=== PATIENT | female | born 1940 | race Two or more races ===

== ENCOUNTER 2022-02-02 14:59 | Emergency (ER) | payer BC, OTHER ==
[~2022-02-02] VITALS: Ht 157.5 cm; Wt 63.0 kg
--- NOTE | 2022-02-02 15:28 | NUR ---
DR JEFFERSON AT THE BEDSIDE
--- NOTE | 2022-02-02 15:38 | NUR ---
KALE C/O L SHOULDER PAIN 8 x 2 MONTHS. NO TRAUMA. NO APPARENT DEFORMITY NOTED. WILL CONTINUE TO MONITOR THE PATIENT.
--- NOTE | 2022-02-02 15:44 | NUR ---
X-RAY TECH AT THE BEDSIDE
[2022-02-02] MEDS ORDERED: NAPR-1164 PO (16:18)
[2022-02-02 16:26] VITALS: BP 131/62
--- NOTE | 2022-02-02 16:26 | NUR ---
Patient discharged to home in stable condition. Written and verbal after care instructions given. Patient verbalizes understanding of instruction.
== END 2022-02-02 16:27 | disposition home or self-care (01) ==
LOC: ER 15:11
DX: G89.29 Other chronic pain (principal); M25.512 Pain in left shoulder; M75.32 Calcific tendinitis of left shoulder; M19.90 Unspecified osteoarthritis, unspecified site; Z88.8 Allergy status to other drugs, medicaments and biological substances
CPT/HCPCS: 73030-TC